=== PATIENT | female | born 1965 | race Asian ===

== ENCOUNTER 2022-03-23 08:32 | Outpatient (CLI) | payer BC | END 2022-03-23 08:33 | disposition home or self-care (01) | LOC: CSHMAMMO 08:32 | PROVIDERS: ATTEND Family Medicine | DX: Z12.31 Encounter for screening mammogram for malignant neoplasm of breast (principal) | CPT/HCPCS: 77063; 77067 ==

== ENCOUNTER 2022-03-28 09:28 | Outpatient (CLI) | payer BC | END 2022-03-28 09:29 | disposition home or self-care (01) | LOC: CSHMAMMO 09:28 | PROVIDERS: ATTEND Family Medicine | DX: N64.89 Other specified disorders of breast (principal) | CPT/HCPCS: G0279 ==

== ENCOUNTER 2023-12-17 09:31 | Outpatient (CLI) | payer BC | END 2023-12-17 09:32 | disposition home or self-care (01) | LOC: CSHMAMMO 09:31 | PROVIDERS: ATTEND Family Medicine | DX: Z12.31 Encounter for screening mammogram for malignant neoplasm of breast (principal); Z13.820 Encounter for screening for osteoporosis; N95.9 Unspecified menopausal and perimenopausal disorder; M85.89 Other specified disorders of bone density and structure, multiple sites | CPT/HCPCS: 77063; 77067; 77080 ==

== ENCOUNTER 2024-10-22 08:20 | Outpatient (CLI) | payer BC | END 2024-10-22 08:21 | disposition home or self-care (01) | LOC: CSHSLEEP 08:20 | PROVIDERS: ATTEND Internal Medicine | DX: G47.33 Obstructive sleep apnea (adult) (pediatric) (principal) | CPT/HCPCS: 95800 ==

== ENCOUNTER 2025-06-18 14:20 | Outpatient (CLI) | payer BC | END 2025-06-18 14:21 | disposition home or self-care (01) | LOC: CSHRAD 14:20 | PROVIDERS: ATTEND Family Medicine | DX: R07.89 Other chest pain (principal) | CPT/HCPCS: 71046 ==

== ENCOUNTER 2025-08-04 07:39 | Outpatient (CLI) | payer BC | END 2025-08-04 07:40 | disposition home or self-care (01) | LOC: CSHMAMMO 07:39 | PROVIDERS: ATTEND Family Medicine | DX: N64.89 Other specified disorders of breast (principal) | CPT/HCPCS: G0279 ==